=== PATIENT | male | born 1960 | race Caucasian/White ===

== ENCOUNTER 2016-09-21 15:29 | Outpatient (CLI) | payer OTHER | END 2016-09-21 15:30 | disposition home or self-care (01) | DX: M77.12 Lateral epicondylitis, left elbow (principal); M77.11 Lateral epicondylitis, right elbow; R20.2 Paresthesia of skin ==

== ENCOUNTER 2019-02-06 11:30 | Outpatient (CLI) | payer MEDICAID ==
--- NOTE | 2019-02-08 14:26 | XRAY Report ---
Reason: HIP PAIN RIGHT Procedure Date: 02/06/2019 Accession Number: [id number] / [id number] Procedure: XRN - Hip w/Pelvis 2-3V RT CPT Code: FULL RESULT: EXAM: RIGHT HIP RADIOGRAPHY EXAM DATE: 02/06/2019 11:59 AM. CLINICAL HISTORY: Right hip pain. COMPARISON: LUMBAR SPINE COMPLETE 02/06/2019 11:49 AM. TECHNIQUE: 2 views. FINDINGS: Bones: Slight diminished right femoral head-neck offset. No acute fracture or bone lesions. Joints: Normal. No dislocation. The hip joint space is preserved. Soft Tissues: Normal. No soft tissue swelling. IMPRESSION: 1. Diminished right femoral head-neck offset which may be cause for CAM type femoral acetabular impingement. RADIA
--- NOTE | 2019-02-08 14:29 | XRAY Report ---
Reason: HIP PAIN RIGHT Procedure Date: 02/06/2019 Accession Number: [id number] / [id number] Procedure: XRN - Lumbar Spine Complete CPT Code: FULL RESULT: EXAM: LUMBOSACRAL SPINE RADIOGRAPHY EXAM DATE: 02/06/2019 11:59 AM. CLINICAL HISTORY: HIP PAIN RIGHT. COMPARISONS: None. TECHNIQUE: 5 views. FINDINGS: Alignment: Normal. No spondylolisthesis or scoliosis. Bones: Five [id number] lumbar vertebral bodies are present. Small anterolateral osteophytes from L3-L4 and L5-S1. No acute fracture or bone lesions. Disks: Mild to moderate L4-L5 and L3-L4 disk space narrowing. Facets: L5-S1 facet arthropathy. Sacroiliac Joints: Unremarkable. Soft Tissues: Normal. The visualized bowel gas pattern is normal. IMPRESSION: 1. Disk space narrowing at L4-L5 and L3-L4. 2. L5-S1 facet arthropathy. RADIA
== END 2019-02-06 11:31 | disposition home or self-care (01) ==
LOC: DI.N 11:30
PROVIDERS: ATTEND Family Medicine
DX: M53.3 Sacrococcygeal disorders, not elsewhere classified (principal); M48.061 Spinal stenosis, lumbar region without neurogenic claudication; M25.78 Osteophyte, vertebrae; M25.551 Pain in right hip; M25.851 Other specified joint disorders, right hip
CPT/HCPCS: 72110

== ENCOUNTER 2020-08-11 09:32 | Outpatient (CLI) | payer MEDICAID ==
--- NOTE | 2020-08-11 16:52 | XRAY Report ---
PROCEDURE: Knee 3 View RT INDICATIONS: RIGHT KNEE PAIN TECHNIQUE: 3 views of the right knee(s) were acquired. COMPARISON: None. FINDINGS: Bones: No fractures or dislocations. No suspicious bony lesions. Note is made of a mild degree of n arrowing at the lateral facet of the patellofemoral joint, seen on the sunrise view. Soft tissues: No joint effusion. No suspicious soft tissue calcifications. IMPRESSION: Mild lateral facet patellofemoral joint osteoarthritis without evidence of prior trauma. Reviewed by: Mario Ford MD on 08/11/2020 4:51 PM PST Approved by: Mario Ford MD on 08/11/2020 4:51 PM PST Station ID: [id number]
== END 2020-08-11 23:59 | disposition home or self-care (01) ==
LOC: DI.N 09:32
PROVIDERS: ATTEND Family Medicine
DX: M17.11 Unilateral primary osteoarthritis, right knee (principal)

== ENCOUNTER 2020-08-25 07:53 | Outpatient (CLI) | payer MEDICAID ==
[2020-08-25 13:26] LABS: BASOPHILS % (AUTO) 0.8 %; EOSINOPHILS # (AUTO) 0.2 10^3/uL (0.0-0.7); EOSINOPHILS % (AUTO) 3.6 %; HGB - HEMOGLOBIN 14.6 g/dL (14.0-18.0); LYMPHOCYTES % (AUTO) 37.3 %; MEAN CORPUSCULAR HEMOGLOBIN 31.1 pg (27.0-31.0); MEAN CORPUSCULAR HGB CONC 32.8 g/dL (32.0-36.0); MEAN CORPUSCULAR VOLUME 94.9 fL (80.0-94.0); MEAN PLATELET VOLUME 8.7 fL (7.4-11.4); MONOCYTES # (AUTO) 0.4 10^3/uL (0.0-1.0); MONOCYTES % (AUTO) 7.2 %; NEUTROPHILS # (AUTO) 2.7 10^3/uL (1.5-6.6); NEUTROPHILS % (AUTO) 50.9 %; PLT - PLATELET COUNT 297 10^3/uL (130-450); RED BLOOD COUNT 4.69 10^6/uL (4.70-6.10); RED CELL DISTRIBUTION WIDTH 11.9 % (12.0-15.0); WHITE BLOOD COUNT 5.3 x10^3/uL (4.8-10.8)
[2020-08-25 13:27] LABS: ALBUMIN 4.3 g/dL (3.2-5.5); ALBUMIN/GLOBULIN RATIO 1.3 (1.0-2.2); ALKALINE PHOSPHATASE 52 IU/L (42-121); ALT ALANINE AMINOTRANSFERASE 23 IU/L (10-60); AST ASPARTATE AMINOTRANSFERASE 21 IU/L (10-42); BILIRUBIN,TOTAL 1.1 mg/dL (0.2-1.0); BUN - BLOOD UREA NITROGEN 17 mg/dL (6-20); CARBON DIOXIDE - CO2 27 mmol/L (21-32); CHLORIDE 101 mmol/L (101-111); CHOL/HDL RATIO 4.4 (<5.0); CHOLESTEROL 240 mg/dL; CREATININE 0.8 mg/dL (0.6-1.2); GLUCOSE 110 mg/dL (70-100); HDL CHOLESTEROL 54 mg/dL; LDL CHOLESTEROL,CALCULATED 165 mg/dL; LDL/HDL RATIO 3.1 (<3.6); TOTAL PROTEIN 7.5 g/dL (6.7-8.2); VLDL CHOLESTEROL 21 mg/dL
== END 2020-08-25 23:59 | disposition home or self-care (01) ==
LOC: LAB.WCP 07:53
PROVIDERS: ATTEND Nurse Practitioner Family
DX: H93.11 Tinnitus, right ear (principal); R20.2 Paresthesia of skin; Z12.5 Encounter for screening for malignant neoplasm of prostate; K57.30 Diverticulosis of large intestine without perforation or abscess without bleeding
CPT/HCPCS: 36415; 80053; 80061; 83721; 84153; 84443; 85025

== ENCOUNTER 2020-10-16 08:47 | Day surgery (SDC) | payer MEDICAID ==
[2020-10-16] MEDS ORDERED: LACTATED RINGERS 1,000 ML IV ONE ×2 (09:14→09:48)
[2020-10-16] MEDS ORDERED: MIDAZOLAM 2 MG/2 ML VIAL ONE ×3 (09:27→09:44)
[2020-10-16] MEDS ORDERED: fentaNYL 250 MCG/5 ML VIAL ONE (09:27)
[2020-10-16 10:32] VITALS: BP 107/75
== END 2020-10-16 08:48 | disposition home or self-care (01) ==
LOC: SDS 08:47
PROVIDERS: ATTEND Surgery
DX: Z12.11 Encounter for screening for malignant neoplasm of colon (principal); K57.30 Diverticulosis of large intestine without perforation or abscess without bleeding; K64.8 Other hemorrhoids; Z86.010 Personal history of colon polyps; Z80.0 Family history of malignant neoplasm of digestive organs; M19.90 Unspecified osteoarthritis, unspecified site; Z79.899 Other long term (current) drug therapy; Z87.891 Personal history of nicotine dependence
CPT/HCPCS: 45378; J3010; J7120

== ENCOUNTER 2022-12-28 15:12 | Outpatient (CLI) | payer MEDICAID ==
--- NOTE | 2022-12-28 18:37 | XRAY Report ---
PROCEDURE: Thoracic Spine 2 View INDICATIONS: THORATIC/LUMBAR PAIN TECHNIQUE: 3 views of the thoracic spine were acquired. COMPARISON: None. FINDINGS: Bones: No fractures or dislocations. No suspicious bony lesions. 12 pairs of ribs are noted, and a ppear intact where visualized. Soft tissues: No paravertebral stripe thickening. IMPRESSION: No thoracic spine fracture identified radiographically. If symptoms persist, follow-up radiographs an d/or CT or MRI may be helpful for further evaluation. Reviewed by: Andrzej Sarkar MD on 12/28/2022 6:36 PM PDT Approved by: Andrzej Sarkar MD on 12/28/2022 6:36 PM PDT Station ID: [id number]
--- NOTE | 2022-12-28 18:39 | XRAY Report ---
PROCEDURE: Lumbar Spine 2 View INDICATIONS: THORATIC SPINE PAIN TECHNIQUE: 3 views of the lumbar spine were acquired. COMPARISON: None. FINDINGS: Bones: 5 [id number] vertebrae are present. No lumbar vertebral body fracture identified. Modera te multilevel degenerative changes with disc height loss, endplate spurring, and facet arthropathy. Soft tissues: Overlying bowel gas pattern is normal. No suspicious soft tissue calcifications. IMPRESSION: Multilevel degenerative changes of the lumbar spine Reviewed by: Andrzej Sarkar MD on 12/28/2022 6:38 PM PDT Approved by: Andrzej Sarkar MD on 12/28/2022 6:38 PM PDT Station ID: [id number]
== END 2022-12-28 15:13 | disposition home or self-care (01) ==
LOC: DI.S 15:12
PROVIDERS: ATTEND Chiropractor
DX: M47.816 Spondylosis without myelopathy or radiculopathy, lumbar region (principal)